=== PATIENT | male | born 1975 | race Caucasian/White ===

== ENCOUNTER → 2018-07-12 | Outpatient (CLI) | payer OTHER ==
--- NOTE | 2018-07-12 09:29 | US ---
EXAMINATION TYPE: US scrotum with doppler. Grayscale and color Doppler Duplex imaging performed of t he scrotum. DATE OF EXAM: 07/12/2018 COMPARISON: NONE CLINICAL HISTORY: K46.9 Unspecified abdominal hernia without, R10.30. Left scrotal pain EXAM MEASUREMENTS: TESTICLES: Right Testicle: 5.3 x 2.6 x 3.1 cm Left Testicle: 5.4 x 2.4 x 3.2 cm EPIDIDYMIS HEAD: Right Epididymis: unable to visualize Left Epididymis: 1.3 cm Doppler performed to assess for testicular vascularity; good bilateral color flow and waveforms are s een. There is no evidence of testicular torsion. Presence of varicoceles: yes, prominent vessels lateral to left testicle IMPRESSION: 1. Varicoceles noted.
== END | disposition home or self-care (01) ==
LOC: RADUSWWP 06:52
PROVIDERS: ATTEND Pediatrics
DX: I86.1 Scrotal varices (principal); R10.30 Lower abdominal pain, unspecified
CPT/HCPCS: 76870; 93975